=== PATIENT | male | born 1985 | race Caucasian/White ===

== ENCOUNTER 2016-10-28 20:28 | Emergency (ER) | payer SELFPAY ==
[~2016-10-28] VITALS: Ht 188 cm; Wt 144.0 kg
[2016-10-28 21:15] VITALS: Ht 188 cm; Wt 144.0 kg
--- NOTE | 2016-10-28 21:34 | EN ---
Date/Time of Note Date/Time of Note DATE: 10/28/16 TIME: 21:33 ER Progress Note 31-year-old male presents to emergency department for complaint of right thigh pain, throbbing pressure pain, 6/10 scale, accompanied with redness accompanied with headache. Patient denies any foreign body sensation in the eye, feels pressure behind the eye. Patient denies any eye discharge. Patient denies any itching. Patient denies any vision changes. Patient was initially evaluated in E, considering patient has pressure type of pain behind the right eye and redness but no eye discharge, patient needed further evaluation, possible checking of eye pressure using a Aly-Pen, possible fluorescein dye exam, patient is awaiting Bactine ER 2, stable at this time. LIZ TAYLOR NP Oct 28, 2016 21:34
--- NOTE | 2016-10-28 22:43 | ERD ---
ER Documentation Chief Complaint Date/Time DATE: 10/28/16 TIME: 22:38 Chief Complaint RIGHT EYE PAIN TODAY. +REDNESS ITCHINESS. HPI 31-year-old male presents to emergency department for complaints of right eye pain started today, complaining of itching and redness. Patient denies any vision changes. Patient described the pain as throbbing pain, 6/10 scale, now better worse with anything. Patient denies any eye discharge. Patient denies any foreign body sensation in the eye. Patient denies any eye discharge. Patient denies any direct trauma on the eye. ROS All systems reviewed and are negative except as per history of present illness. Medications Home Meds Reported Medications [none] Unknown Strength No Conflict Check 10/28/16 Allergies Allergies: Coded Allergies: No Known Allergy (Unverified , 10/28/16) PMhx/Soc Medical and Surgical Hx: pt denies Medical Hx, pt denies Surgical Hx FmHx Family History: No coronary disease, No diabetes, No other Physical Exam Vitals Vital Signs Date Time Temp Pulse Resp B/P Pulse Ox O2 Delivery O2 Flow Rate FiO2 10/28/16 21:15 98.1 89 22 159/75 100 Physical Exam GENERAL: The patient is well developed and appropriate for usual state of health, in no apparent distress. HEENT: Atraumatic. Right eye conjunctiva noted to be erythematous and injected, no eye discharge. The right conjunctiva is normal. Bilateral eyes are PERRL EOM intact. Ears: Normal tympanic membrane, no erythema or bulging. No ear canal swelling. No ear discharge. Nose: normal nasal turbinates, no erythema or swelling. Normal nasal discharge. Throat: oropharynx clear. No tonsillar swelling or tonsillar exudates. No lymphadenopathy. CHEST: Clear to auscultation bilaterally. There are no rales, wheezes or rhonchi. HEART: Regular rate and rhythm. No murmurs, clicks, rubs or gallops. No S3 or S4. ABDOMEN: Soft, nontender and nondistended. Good bowel sounds. No rebound or guarding. No gross peritonitis. No gross organomegaly or masses. No Collier sign or McBurney point tenderness. BACK: No midline or flank tenderness. EXTREMITIES: Equal pulses bilaterally. There is no peripheral clubbing, cyanosis or edema. No focal swelling or erythema. Full range of motion. Grossly neurovascularly intact. NEURO: Alert and oriented. Cranial nerves 2-12 intact. Motor strength in all 4 extremities with 5/5 strength. Sensation grossly intact. Normal speech and gait. SKIN: There is no apparent rash or petechia. The skin is warm and dry. HEMATOLOGIC AND LYMPHATIC: There is no evidence of excessive bruising or lymphedema. No gross cervical, axillary, or inguinal lymphadenopathy. Results 24 hrs Current Medications Medications (Trade) Dose Ordered Sig/Olga Route PRN Reason Start Time Stop Time Status Last Admin Dose Admin Tetracaine HCl (Tetracaine 0.5% Steri-Unit Vero) 1 drop ONCE ONCE RIGHT EYE 10/28/16 23:00 4 23:01 DC Fluorescein Sodium (Mwovy-T-Gmyzg) 1 strip ONCE ONCE RIGHT EYE 10/28/16 23:00 10/28/16 23:01 DC Procedure Note: After obtaining informed consent, the right eye was stained using fluorescein dye. After staining the eye, A Wood's lamp was used to evaluate the eye. Noted brownish foreign body in the right eye which was removed without any difficulty, and upon reevaluation, no foreign body noted. Feels much better. No corneal abrasions noted. Patient tolerated procedure well. Eye pressures were checked, 18 mmHg right eye, 24 mmHg left eye. Affected eye is right eye. Procedures/MDM Medical decision making: Patient's symptoms most likely consistent with foreign body in the right eye, this was removed without any difficulty. No corneal abrasions noted. Eye pressure was right eye which is the affected eye, low suspicion for acute closed angle glaucoma. No symptoms of eye emergencies, no Emre sign. Low suspicion for retinal detachment. No vision changes. Prescription was given for become also be Vigamox solution, is advised to follow with primary care doctor in 1-2 days for reevaluation of symptoms. Patient was advised to return to emergency department for any worsening symptoms. Departure Diagnosis: Primary Impression: Corneal foreign body Encounter type: initial encounter Laterality: right Qualified Code: T15.01XA - Corneal foreign body, right, initial encounter Condition: Stable Patient Instructions: Corneal Foreign Body, Removed Additional Instructions: see division operations specialist within 1-2 days LIZ TAYLOR NP Oct 28, 2016 22:43
[2016-10-28] MEDS ORDERED: FLUORESCEIN STRIP RIGHT EYE ONE (23:00)
[2016-10-28] MEDS ORDERED: TETRACAINE 0.5% 4 ML OPH RIGHT EYE ONE (23:00)
[2016-10-28] MEDS ORDERED: VIGA RIGHT EYE (23:58)
== END 2016-10-29 00:20 | disposition home or self-care (01) ==
LOC: FTE 20:28
DX: T15.01XA Foreign body in cornea, right eye, initial encounter (principal); X58.XXXA Exposure to other specified factors, initial encounter; Y92.9 Unspecified place or not applicable
CPT/HCPCS: 99283